=== PATIENT | male | born 1985 | race Caucasian/White ===

== ENCOUNTER 2017-03-17 11:20 | Emergency (ER) | payer MEDICARE, MEDICAID ==
[~2017-03-17] VITALS: Ht 152.4 cm; Wt 81.6 kg
--- NOTE | 2017-03-17 11:37 | NUR ---
BIBFATHER DT SOB X 1 MONTH,. PER PT'S FATHER, PT HAS BEEN HAVING ON AND OFF HEAVY BREATHING. PATIENT IS AWAKE AND ALERTM, W/C BOUND, WITH HX OF MR. MONY. AFEBRILE. SATI G 98% ON ROOM AIR, PENDING MD HINOJOSA\L
[2017-03-17] MEDS ORDERED: IV NS 0.9% 1,000 ML BAG IV ONE (12:30)
--- NOTE | 2017-03-17 12:33 | NUR ---
RADIOLOGY AT BEDSIDE FOR CHEST XRAY.
[2017-03-17 12:34] LABS: BASOPHILS # (AUTO) 0.1 /CMM (0.0-0.2); BASOPHILS % (AUTO) 0.7 % (0.0-2.0); EOSINOPHILS # (AUTO) 0.1 /CMM (0.0-0.7); EOSINOPHILS % (AUTO) 0.8 % (0.0-6.0); HEMATOCRIT 52 % (39-51); HEMOGLOBIN 17.8 g/dL (13.5-17.5); LYMPHOCYTES # (AUTO) 1.1 /CMM (0.8-4.8); LYMPHOCYTES % (AUTO) 9.7 % (20.0-44.0); MEAN CORPUSCULAR HEMOGLOBIN 29 PG (26.0-33.0); MEAN CORPUSCULAR HGB CONC 34 g/dl (31.0-36.0); MEAN CORPUSCULAR VOLUME 85 fL (80-96); MONOCYTES # (AUTO) 0.5 /CMM (0.1-1.30); NEUTROPHILS # (AUTO) 9.2 /CMM (1.8-8.9); NEUTROPHILS % (AUTO) 83.8 % (43.0-81.0); PLATELET COUNT (AUTO) 221 /CMM (150-450); RDW COEFFICIENT OF VARIATION 12.4 (11.5-15.0); RED BLOOD CELL COUNT(AUTO) 6.15 MIL/uL (4.5-6.0)
[2017-03-17 12:44] LABS: CALCIUM, SERUM 8.9 mg/dL (8.5-10.1); CREATININE 0.9 mg/dL (0.6-1.3); POTASSIUM 4.2 mmol/L (3.5-5.1)
[2017-03-17 14:00] VITALS: BP 127/60
--- NOTE | 2017-03-17 14:01 | NUR ---
Patient discharged to home in stable condition. Written and verbal after care instructions given. Patient verbalizes understanding of instruction.IV removed. Catheter intact and site benign. Pressure and 4x4 applied to site. No bleeding noted.
== END 2017-03-17 14:02 | disposition home or self-care (01) ==
LOC: ER 11:23
DX: J06.9 Acute upper respiratory infection, unspecified (principal)
CPT/HCPCS: 36415; 71010; 80048; 85025; 85378; 99285; A4606; J7030; Z7610

== ENCOUNTER 2018-02-18 18:12 | Emergency (ER) | payer MEDICARE, MEDICAID ==
[~2018-02-18] VITALS: Ht 152.4 cm; Wt 82.1 kg
[2018-02-18 18:12] VITALS: BP 140/105
[2018-02-18] MEDS ORDERED: CEPHALEXIN MONOHYDRATE 500 MG CAPSULE PO ONE ×2 (19:00→19:28)
[2018-02-18] MEDS ORDERED: SULFAMETH/TRIMETH 800/160 MG 1 UDTAB TABLET PO ONE ×2 (19:00→19:28)
== END 2018-02-18 19:53 | disposition home or self-care (01) ==
LOC: ER 18:16
DX: L03.012 Cellulitis of left finger (principal); G80.8 Other cerebral palsy; Z98.890 Other specified postprocedural states
CPT/HCPCS: 73140; 99284; A4606; Z7610

== ENCOUNTER 2018-11-24 18:29 | Emergency (ER) | payer MEDICARE, MEDICAID ==
[~2018-11-24] VITALS: Ht 165.1 cm; Wt 70.8 kg
[2018-11-24 18:37] VITALS: BP 149/76
== END 2018-11-24 19:39 | disposition home or self-care (01) ==
LOC: ER 18:29
DX: S00.86XA Insect bite (nonvenomous) of other part of head, initial encounter (principal); W57.XXXA Bitten or stung by nonvenomous insect and other nonvenomous arthropods, initial encounter; Y93.89 Activity, other specified; Y92.89 Other specified places as the place of occurrence of the external cause; Y99.8 Other external cause status